=== PATIENT | female | born 1955 | race Caucasian/White ===

== ENCOUNTER → 2021-07-09 | Outpatient (CLI) | payer OTHER ==
[~2021-07-09] MED LIST: FLEXERIL 10 MG10 MG PO; IBUPROFEN400 MG PO; MACROBID 100 M100 MG PO; ZOFRAN4 MG PO
== END ==
LOC: HEART 5 11:05
DX: R60.0 Localized edema (principal)
CPT/HCPCS: 93306

== ENCOUNTER → 2021-07-25 | Outpatient (CLI) | payer OTHER | LOC: CT 10:06 | DX: I73.9 Peripheral vascular disease, unspecified (principal); K76.0 Fatty (change of) liver, not elsewhere classified | CPT/HCPCS: 36415; 75635; 82565; 84520; Q9967 ==